=== PATIENT | male | born 1965 | race Caucasian/White ===

== ENCOUNTER 2021-03-27 08:53 | Observation (INO) | payer BC ==
[~2021-03-27] VITALS: Ht 185.4 cm; Wt 107.5 kg
[~2021-03-27 08:53] MED LIST: ALEVE220 MG PO; Multivitamin1 EAC1 PO
[2021-03-27] MEDS ORDERED: AZIT250 PO (09:22)
[2021-03-27] MEDS ORDERED: OMEPRAZOLE20 M3 PO (09:22)
[2021-03-27 09:30] LABS: BASOPHILS ABSOLUTE AUTO 0.04 K/mm3 (0.00-0.23); BASOPHILS PERCENT AUTO 1 % (0-2); EOSINOPHILS ABSOLUTE AUTO 0.14 K/mm3 (0.00-0.68); EOSINOPHILS PERCENT AUTO 2 % (0-6); Hematocrit 45.9 % (37.0-53.0); Hemoglobin 14.6 g/dL (13.5-17.5); IMMATURE GRAN ABSOLUTE AUTO 0.02 K/mm3 (0.00-0.10); IMMATURE GRAN PERCENT AUTO 0 % (0-1); LYMPHOCYTES PERCENT AUTO 19 % (21-46); MONOCYTES ABSOLUTE AUTO 0.53 K/mm3 (0.16-1.47); MONOCYTES PERCENT AUTO 6 % (4-13); Mean Corpuscular HGB 29.3 pg (26.0-34.0); Mean Corpuscular HGB Conc 31.8 g/dL (31.5-36.5); Mean Corpuscular Volume 92 fL (80-100); Mean Platelet Volume 10.4 fL (9.1-12.4); NEUTROPHILS PERCENT AUTO 72 % (41-73); Platelet Count 258 K/mm3 (150-400); RDW Coefficient Variation 13.6 % (11.7-14.2); Red Blood Cell Count 4.99 M/mm3 (4.30-5.90); White Blood Cell Count 8.33 K/mm3 (4.00-11.30)
[2021-03-27 10:07] LABS: Alanine Aminotransfer (ALT/SGP 82 U/L (12-78); Albumin, Blood 3.5 g/dL (3.4-5.0); Alk Phos 80 U/L (50-136); Anion Gap 5 mmol/L (6-16); Aspartate Aminotrans (AST/SGOT 42 U/L (12-37); Bilirubin, Total 0.6 mg/dL (0.1-1.0); Blood Urea Nitrogen 18 mg/dL (8-24); Bun/Creatinine Ratio 15.7 (12.0-20.0); CO2, Blood 26 mmol/L (21-32); Calcium, Blood 8.4 mg/dL (8.5-10.1); Chloride, Blood 111 mmol/L (98-108); Creatinine, Blood 1.15 mg/dL (0.60-1.20); Globulin, Blood 3.6 g/dL (2.2-4.0); Glomerular Filtration Rate >60 (60-); Glucose, Blood 136 mg/dL (70-99); Potassium, Blood 4.2 mmol/L (3.5-5.5); Sodium, Blood 142 mmol/L (136-145); Total Protein, Blood 7.1 g/dL (6.4-8.2); Troponin I 0.037 ng/mL (0.000-0.040)
[2021-03-27 10:15] LABS: International Normalized Ratio 1.01; Prothrombin Time Results 10.9 Sec (9.7-11.5)
--- NOTE | 2021-03-27 13:06 | NUR ---
Echocardiogram performed,
--- NOTE | 2021-03-27 17:56 | NUR ---
PATIENT IS ALERT AND ORIENTED AND COOPERATIVE WITH CARE. THE PATIENT'S IS AT THE BEDSIDE. THE FIRST HALF OF THE STRESS TEST HAS BEEN COMPLETED. THE PATIENT IS TO BE NPO FOR 4 HOURS PRIOR TO THE SECOND PART OF THE STRESS TEST TOMORROW AND NO CAFFEINE FOR 8 HOURS. TELE SHOWS SR WITH RATE OF 96 BPM. PATIENT C/O SOB WITH EXERTION TO THE BATHROOM. HE IS INDEPENDENT IN HIS ROOM. CRISTINA HOSE ARE IN PLACE ON BLE. HEPARIN INFUSION IS RUNNING. WILL CONTINUE TO MONITOR
[2021-03-28 05:16] LABS: BASOPHILS ABSOLUTE AUTO 0.06 K/mm3 (0.00-0.23); BASOPHILS PERCENT AUTO 1 % (0-2); EOSINOPHILS ABSOLUTE AUTO 0.17 K/mm3 (0.00-0.68); EOSINOPHILS PERCENT AUTO 2 % (0-6); Hematocrit 43.6 % (37.0-53.0); Hemoglobin 14.2 g/dL (13.5-17.5); IMMATURE GRAN ABSOLUTE AUTO 0.03 K/mm3 (0.00-0.10); IMMATURE GRAN PERCENT AUTO 0 % (0-1); LYMPHOCYTES ABSOLUTE AUTO 2.16 K/mm3 (0.84-5.20); LYMPHOCYTES PERCENT AUTO 24 % (21-46); MONOCYTES ABSOLUTE AUTO 0.72 K/mm3 (0.16-1.47); MONOCYTES PERCENT AUTO 8 % (4-13); Mean Corpuscular HGB Conc 32.6 g/dL (31.5-36.5); Mean Corpuscular Volume 89 fL (80-100); Mean Platelet Volume 10.3 fL (9.1-12.4); NEUTROPHILS ABSOLUTE AUTO 5.93 K/mm3 (1.96-9.15); NEUTROPHILS PERCENT AUTO 65 % (41-73); Platelet Count 231 K/mm3 (150-400); RDW Coefficient Variation 13.5 % (11.7-14.2); RDW Standard Deviation 44.9 fL (35.1-46.3); Red Blood Cell Count 4.89 M/mm3 (4.30-5.90); White Blood Cell Count 9.07 K/mm3 (4.00-11.30)
--- NOTE | 2021-03-28 05:19 | NUR ---
SHIFT SUMMARY NO ACUTE CHANGES THIS SHIFT, NO C/O ANY KIND, UP INDEP IN ROOM, NPO @ 0400, SLEPT T/O THE NIGHT (SLEEP STUDY IN PROGRESS), SLEEPING AT THIS TIME, CALL LIGHT IN REACH, WILL CONT TO MONITOR UNTIL REPORT GIVEN TO DAY RN.
[2021-03-28 05:44] LABS: Anion Gap 8 mmol/L (6-16); Blood Urea Nitrogen 18 mg/dL (8-24); Bun/Creatinine Ratio 16.1 (12.0-20.0); CHOL/HDL RATIO 3.9; CO2, Blood 25 mmol/L (21-32); Calcium, Blood 8.3 mg/dL (8.5-10.1); Chloride, Blood 110 mmol/L (98-108); Cholesterol 165 mg/dL (50-200); Creatinine, Blood 1.12 mg/dL (0.60-1.20); Glomerular Filtration Rate >60 (60-); Glucose, Blood 105 mg/dL (70-99); HDL Cholesterol 42 mg/dL (>39); LDL/HDL RATIO 2.5; Low Density Lipoprotein Chol 107 mg/dL (0-110); Potassium, Blood 4.1 mmol/L (3.5-5.5); Sodium, Blood 143 mmol/L (136-145); Triglycerides 81 mg/dL (30-160); Very Low Density Lipoprot Chol 16 mg/dL (6-32)
--- NOTE | 2021-03-28 15:49 | NUR ---
STRESS TEST RESULTS ARE NOW AVAILABLE, DR. FRITZ NOTIFIED, SHE REPORTED THAT SHE WILL BE IN TO SPEAK WITH PT AND IN [facility] THE NEXT HOUR.
--- NOTE | 2021-03-28 16:16 | NUR ---
Update 03/28/21 1613: Per chart review with Dr. Ricks, pt. likely to discharge pending completion of cardiology work-up. Dr. Boyd noted that pt. will need a life vest prior to discharge. Confirmed by Anastasiia at cardiology office that life vest was ordered and prior auth is required. She should not more on the time frame tomorrow. Will meet with pt. in the am to discuss discharge planning and care coordination with PCP at [facility].
--- NOTE | 2021-03-29 04:19 | NUR ---
SHIFT SUMMARY NO ACUTE CHANGES TO REPORT THIS SHIFT. PT HAS RESTED T/O THE SHIFT, HAS DENIED NEEDS AND HAS NO COMPLAINTS OF PAIN. HE HAS BEEN INDEPENDENT IN THE ROOM, AND IS ABLE TO PERFORM HIS OWN ADLS. VITALS ARE STABLE. TELE IN PLACE WITH NSR. HEPARIN GTT CONTINUED ORDERED. PT TO DC WITH LIFE VEST. ASSESSMENT REMAINS UNCHANGED. BED IN LOWEST POSITION, CALL LIGHT WITHIN REACH.
[2021-03-29 05:13] LABS: Anion Gap 5 mmol/L (6-16); Blood Urea Nitrogen 19 mg/dL (8-24); CO2, Blood 27 mmol/L (21-32); Calcium, Blood 8.8 mg/dL (8.5-10.1); Chloride, Blood 108 mmol/L (98-108); Creatinine, Blood 1.12 mg/dL (0.60-1.20); Glomerular Filtration Rate >60 (60-); Glucose, Blood 105 mg/dL (70-99); Sodium, Blood 140 mmol/L (136-145)
[2021-03-29] MEDS ORDERED: ELIQUIS5 MG PO (13:24)
[2021-03-29] MEDS ORDERED: FURO40 PO (13:25)
[2021-03-29] MEDS ORDERED: POTCHL20ER PO (13:25)
[2021-03-29] MEDS ORDERED: LISI5 PO (13:25)
[2021-03-29] MEDS ORDERED: METO25ER PO (13:25)
--- NOTE | 2021-03-29 19:26 | NUR ---
Discharge Summary A/Ox4, independent in room. Discharging to home. Reviewed discharge paperwork with patient and at bedside. Copy given, questions answered. Life vest placed on patient prior to discharge. Personal belongings sent home. Escorted by [employer] via w/c. IV removed. Meds faxed to [facility]. Personal transport home. Tele called and notified this RN of 15 beat run of SVT. Upon entering room, patient denied chest pain, shortness of breath, dizziness. Patient sitting in bed with at side having life vest placed on. MAUREEN Rooney notified of event. No new order. Tele: SR IYER.
--- NOTE | 2021-03-30 13:38 | NUR ---
Update 03/29/21: Per chart review with Dr. Ricks this am, pt. will be appropriate for discharge once life vest fitted. Contacted cardiology to determine an estimated time. Between [id number] will be the time frame of fitting. Discussed discharge planning with pt. He is anxious to leave as his son is getting this weekend. He has very solid support at home with his family. Scheduled pt. for F/U visit with Dr. Ricks . While hospitalized, pt. requested change in PCP. He spoke highly of previous PCP, but felt very strongly that Dr. Ricks was the best fit for his care. Discussed with Dr. Ricks. Form will be faxed to [facility]. talent manager Brittni notified. Update 03/29/21 16:30: Met with pt. and to review plans for discharge together. Medications discussed including addition of Eliquise. Due to high cost, I gave them a copay card to use at the pharmacy. Questions and concerns reviewed. Pt. assured me that he would take it easy and allow family to assist him. Scheduled for F/U visit 04/04/21 at 3:[address] Ricks. Date/time written on discharge letter and given to patient's . Discharge orders in chart, notified nurse and family that pt. will be discharging as soon as vest fitted. [facility] team will follow-up to check on pt. over the next 48 hours.
== END 2021-03-29 19:38 | disposition home or self-care (01) ==
LOC: ER 08:53 → MEDS 08:54
PROVIDERS: Emergency Medicine; Family Medicine; ADMIT Internal Medicine
DX: I26.99 Other pulmonary embolism without acute cor pulmonale (principal); I50.21 Acute systolic (congestive) heart failure; I42.0 Dilated cardiomyopathy; I82.411 Acute embolism and thrombosis of right femoral vein; I27.20 Pulmonary hypertension, unspecified; I77.810 Thoracic aortic ectasia; R79.89 Other specified abnormal findings of blood chemistry; E66.9 Obesity, unspecified; R73.03 Prediabetes; Z68.31 Body mass index [BMI] 31.0-31.9, adult
CPT/HCPCS: 36415; 71045; 71260; 78452; 80048; 80053; 80061; 83036; 83880; 84484; 85025; 85379; 85610; 85730; 93005; 93010; 93017; 93306; 93970; 94762; 96365; 96366; 96375; 96376; 99285-25; A9270; A9500; G0378; J0706; J1644; J1940; J2785; Q9967

== ENCOUNTER 2021-04-05 13:01 | Emergency (ER) | payer BC ==
[~2021-04-05] VITALS: Ht 185.4 cm; Wt 99.3 kg
[~2021-04-05 13:01] MED LIST changes: +AZIT250 PO; +ELIQUIS5 MG PO; +FURO40 PO; +LISI5 PO; +METO25ER PO; +OMEPRAZOLE20 M3 PO; +POTCHL20ER PO
== END 2021-04-05 15:19 | disposition home or self-care (01) ==
LOC: ER 13:01
DX: I82.411 Acute embolism and thrombosis of right femoral vein (principal); Z79.01 Long term (current) use of anticoagulants; Z79.899 Other long term (current) drug therapy
CPT/HCPCS: 93971; 99283-25

== ENCOUNTER → 2022-03-08 | Outpatient (CLI) | payer BC | END | disposition home or self-care (01) | LOC: LAB 12:22 → LAB SHORT 12:22 | DX: R39.198 Other difficulties with micturition (principal) | CPT/HCPCS: 87086 ==